=== PATIENT | female | born 1955 | race Caucasian/White ===

== ENCOUNTER 2022-07-21 08:11 | Day surgery (SDC) | payer OTHER, BC ==
[2022-07-18 15:28] VITALS: BMI 27.3
[2022-07-21] MEDS ORDERED: PROPOFOL 60 ML ONE (09:24)
[2022-07-21 10:00] VITALS: TEMP 98
[2022-07-21 10:16] VITALS: RESP 16
[2022-07-21 10:39] VITALS: BP 118/68; PULSE 64
== END 2022-07-21 11:15 | disposition home or self-care (01) ==
LOC: FASU-ENDO 08:11
PROVIDERS: ATTEND Internal Medicine Gastroenterology
PROC: 0DJD8ZZ Inspection of Lower Intestinal Tract, Via Natural or Artificial Opening Endoscopic (ICD-10-PCS; principal; 2022-07-21 09:40)
DX: Z12.11 Encounter for screening for malignant neoplasm of colon (principal); K57.30 Diverticulosis of large intestine without perforation or abscess without bleeding

== ENCOUNTER 2023-10-13 18:05 | Emergency (ER) | payer OTHER, BC ==
[2023-10-13 18:17] VITALS: BP 116/67; PULSE 76; RESP 18; TEMP 98.5; BMI 27.1
[2023-10-13] MEDS ORDERED: DEXAMETHASONE LIQUID 0.5 MG/5 ML PO ONE (20:36)
[2023-10-13] MEDS ORDERED: DEXAMETHASONE SOD PHOSPHATE 4 MG/1 ML VIAL ONE (20:51)
== END 2023-10-13 21:03 | disposition home or self-care (01) ==
LOC: FER 18:05
DX: M79.10 Myalgia, unspecified site (principal); J02.9 Acute pharyngitis, unspecified; U07.1 COVID-19
CPT/HCPCS: 0241U-QW; 71046-TC-FY; 99284-25